=== PATIENT | female | born 1995 | race Caucasian/White ===

== ENCOUNTER → 2020-09-06 | Outpatient (CLI) | payer BC ==
[~2020-09-06] MED LIST: METF-754 PO
== END | disposition home or self-care (01) ==
LOC: STAR 08:20
PROVIDERS: ATTEND Orthopaedic Surgery
DX: Z20.828 Contact with and (suspected) exposure to other viral communicable diseases (principal); M25.362 Other instability, left knee; M25.562 Pain in left knee
CPT/HCPCS: 87635

== ENCOUNTER 2020-09-12 07:01 | Day surgery (SDC) | payer BC ==
[~2020-09-12] VITALS: Ht 170.2 cm; Wt 115.8 kg
[~2020-09-12 07:01] MED LIST changes: +EPINEPHRINE 1 MG/ML, 1ML ONE; +LIDOCAINE/PF 1%, 30ML ONE; +ROPIvacaine/PF 0.5%, 30 ML ONE
[2020-09-12] MEDS ORDERED: LACTATED RINGERS 1,000 ML IV SCH (07:30)
[2020-09-12] MEDS ORDERED: CHLORHEXIDINE 15 ML UDC MM ONE (07:30)
[2020-09-12] MEDS ORDERED: MIDAZOLAM 1 MG/ML, 2ML ONE (07:31)
[2020-09-12] MEDS ORDERED: PROPOFOL 10 MG/ML, 20ML ONE (07:32)
[2020-09-12] MEDS ORDERED: CEFAZOLIN 1,000 MG ONE (07:32)
[2020-09-12] MEDS ORDERED: FENTANYL PF 250 MCG/5ML ONE ×2 (07:32→09:54)
[2020-09-12] MEDS ORDERED: ONDANSETRON 2MG/ML, 2ML ONE (07:32)
[2020-09-12 07:33] VITALS: BP 126/76
[2020-09-12 07:49] LABS: HCG UR SG 1.028 (1.003-1.030)
[2020-09-12] MEDS ORDERED: BUPIVACAINE/PF 0.5% ONE (08:29)
[2020-09-12] MEDS ORDERED: DEXAMETHASONE 4 MG/ML, 1ML ONE (09:26)
[2020-09-12] MEDS ORDERED: FENTANYL PF 100 MCG/2ML ONE ×2 (09:49→11:08)
[2020-09-12] MEDS ORDERED: HALOPERIDOL 5 MG/ML IV PRN (10:00)
[2020-09-12] MEDS ORDERED: MEPERIDINE/PF 25MG/0.5ML IVPush PRN (10:00)
[2020-09-12] MEDS ORDERED: hydrALAzine 20 MG/ML, 1ML IV PRN (10:00)
[2020-09-12] MEDS ORDERED: PROMETHAZINE 25 MG/ML, 1ML IVPush PRN (10:00)
[2020-09-12] MEDS ORDERED: LABETALOL 5MG/ML, 20ML IV PRN (10:00)
[2020-09-12] MEDS ORDERED: morphine SULFATE 10 MG/ML, 1ML IVPush PRN (10:00)
[2020-09-12] MEDS ORDERED: ACETAMINOPHEN 325 MG TABLET PO PRN (10:00)
[2020-09-12] MEDS ORDERED: OXYcodone 5 MG/5 ML ORAL.SOL UDC PO PRN (10:00)
[2020-09-12] MEDS ORDERED: HYDROmorphone 1 MG/ML, 1ML INJ IVPush PRN (10:00)
[2020-09-12] MEDS ORDERED: OXYcodone 5 MG/5 ML ORAL.SOL UDC ONE (11:08)
[2020-09-12] MEDS ORDERED: ACETAMINOPHEN 650 MG/20.3 ML UDC ONE (11:08)
[2020-09-12] MEDS: FENTANYL PF 100 MCG/2ML IV PRN ×2 (11:11→11:17)
[2020-09-12] MEDS ORDERED: KETOROLAC 30 MG/1 ML IVPush PRN (13:00)
== END 2020-09-12 15:30 | disposition home or self-care (01) ==
LOC: OUT 07:01
PROVIDERS: ATTEND Orthopaedic Surgery
DX: M22.2X2 Patellofemoral disorders, left knee (principal); M17.12 Unilateral primary osteoarthritis, left knee; M65.862 Other synovitis and tenosynovitis, left lower leg; G89.18 Other acute postprocedural pain; Z79.84 Long term (current) use of oral hypoglycemic drugs; Z79.899 Other long term (current) drug therapy; Z91.040 Latex allergy status; Z82.61 Family history of arthritis
CPT/HCPCS: 27418; 29873; 29876; 64447; 73560; 81025; C1713; J0171; J0690; J1100; J2250; J2405; J2704; J2795; J3010; J7120; 76000